=== PATIENT | male | born 1950 | race Two or more races ===

== ENCOUNTER 2024-07-27 11:57 | Inpatient (IN) | payer OTHER ==
[~2024-07-27] VITALS: Ht 182.9 cm; Wt 88.5 kg
[2024-07-27] MEDS ORDERED: REPATHA SY140 MG/1 M SQ (12:29)
[2024-07-27] MEDS ORDERED: GLIMEPIRIDE4 M1 PO (12:29)
[2024-07-27] MEDS ORDERED: TRULICITY1.5 MG/0.5 SQ (12:29)
[2024-07-27] MEDS ORDERED: CATAPRES0.3 MG PO (12:30)
[2024-07-27] MEDS ORDERED: CARDURA8 MG PO (12:30)
[2024-07-27] MEDS ORDERED: LOTREL 10-40 M1 EACH PO (12:30)
[2024-07-27] MEDS ORDERED: XARELTO10 MG PO (12:33)
[2024-07-27] MEDS ORDERED: CARVEDILOL25 MG (12:33)
[2024-07-27] MEDS ORDERED: CIPROFLOXACIN IN 5 % DEXTROSE 400 MG/200 ML PIGGYBAG IV STA (15:13)
[2024-07-27 16:00] LABS: HEMATOCRIT 46.4 % (39.0-48.0); HEMOGLOBIN 15.3 g/dL (13-16.00); MEAN CELL VOLUME 86.1 fL (80.0-100.00); MEAN CORPUSCULAR HEMOGLOBIN 28.4 pg (27.00-32.0); PLATELET COUNT 162 K/uL (150-450); RED BLOOD COUNT 5.38 M/uL (4.00-6.00); RED CELL DISTRIBUTION WIDTH 16.6 % (11.5-14.5)
[2024-07-27 16:18] LABS: CALCIUM 9.5 mg/dL (8.5-10.1); CREATININE SERUM 2.42 mg/dL (0.70-1.30); GFR 26.34; POTASSIUM 4.41 mEq/L (3.5-5.1)
[2024-07-27 17:35] LABS: PH,URINE 5.5 (5.0-8.0); URINE APPEARANCE Clear; URINE BILIRRUBIN Negative (NEGATIVE); URINE BLOOD Small; URINE COLOR Yellow; URINE KETONE Negative (NEGATIVE); URINE LEUKOCYTE Small; URINE NITRATE Negative; URINE PROTEIN 30 (NEGATIVE); URINE UROBILINOGEN 0.2 E.U./dl
[2024-07-27 17:40] LABS: URINE BACTERIA 40.3 uL (0.0-1933); URINE EPITHELIAL CELLS 10.9 uL (0.0-38.8); URINE WBC 240.8 uL (0.0-23.2)
[2024-07-27 17:56] LABS: URINE CAST 0.91 uL (0.0-1.40); URINE GLUCOSE >=1000 MG/DL (NEGATIVE)
[2024-07-27] MEDS ORDERED: hydrALAZINE HCL 25 MG TABLET PO SCH (21:13)
[2024-07-27] MEDS ORDERED: MEROPENEM 500 MG/VIAL VIAL IV SCH (21:13)
[2024-07-27] MEDS ORDERED: 0.9 % SODIUM CHLORIDE 1,000 ML IV SCH (21:15)
[2024-07-27] MEDS ORDERED: ACETAMINOPHEN 500 MG GEL..CAP PO PRN (21:15)
[2024-07-27] MEDS ORDERED: TAMSULOSIN HCL 0.4 MG CAP PO SCH (21:16)
[2024-07-27 21:30] VITALS: BP 157/88
[2024-07-27] MEDS ORDERED: DEXTROSE 50 % IN WATER 0.5 G/ML DISP.SYRIN IV PRN (21:30)
[2024-07-27] MEDS ORDERED: INSULIN LISPRO 1,000 UNIT/10 ML UNITS SUBCUTANEO PRN (21:30)
[2024-07-27 22:24] LABS: INR 1.16; PARTIAL THROMBOPLASTIN TIME 31.9 SECONDS (22.0-34.0); PROTHROMBIN TIME 12.5 SECONDS (9.0-11.5)
[2024-07-27 22:44] LABS: MAGNESIUM 2.1 mg/dL (1.8-2.4)
[2024-07-27 22:48] LABS: C-REACTIVE PROTEIN 20.1 MG/DL (0.00-0.29); PHOSPHOROUS 2.1 mg/dL (2.5-4.9)
[2024-07-27 23:25] VITALS: BP 175/80; O2SAT 98
[2024-07-28 00:53] VITALS: BP 170/70; O2SAT 96
[2024-07-28 08:06] VITALS: BP 154/65; O2SAT 98
[2024-07-28] MEDS ORDERED: FINASTERIDE 5 MG TABLET PO SCH (09:00)
[2024-07-28] MEDS ORDERED: CARVEDILOL 25 MG TABLET PO SCH (09:00)
[2024-07-28] MEDS ORDERED: ENOXAPARIN SODIUM 30 MG/0.3 ML SYRINGE SUBCUTANEO SCH (09:00)
[2024-07-28 16:24] VITALS: BP 198/90
[2024-07-28] MEDS ORDERED: CEFTRIAXONE SODIUM 2,000 MG VIAL IV SCH (17:00)
[2024-07-28] MEDS ORDERED: DOXAZOSIN MESYLATE 4 MG TABLET PO SCH (17:00)
[2024-07-28] MEDS ORDERED: SODIUM CHLORIDE 0.45 % 1,000 ML IV SCH (17:15)
[2024-07-28] MEDS ORDERED: hydrALAZINE HCL 20 MG VIAL IV PRN (17:15)
[2024-07-29 01:07] VITALS: BP 156/75; O2SAT 98
[2024-07-29 08:01] LABS: PH,URINE 5.5 (5.0-8.0); URINE APPEARANCE Clear; URINE BILIRRUBIN Negative (NEGATIVE); URINE BLOOD Negative; URINE COLOR Yellow; URINE KETONE Negative (NEGATIVE); URINE LEUKOCYTE Small; URINE NITRATE Negative; URINE PROTEIN 30 (NEGATIVE); URINE UROBILINOGEN 0.2 E.U./dl
[2024-07-29 08:06] LABS: URINE BACTERIA 22.6 uL (0.0-1933); URINE EPITHELIAL CELLS 9.8 uL (0.0-38.8); URINE WBC 59.9 uL (0.0-23.2)
[2024-07-29 08:10] LABS: HEMATOCRIT 43.5 % (39.0-48.0); HEMOGLOBIN 14.4 g/dL (13-16.00); MEAN CELL VOLUME 84.8 fL (80.0-100.00); MEAN CORPUSCULAR HEMOGLOBIN 28.1 pg (27.00-32.0); MEAN CORPUSCULAR HGB CONC 33.1 g/dl (32.0-36.0); PLATELET COUNT 200 K/uL (150-450); RED BLOOD COUNT 5.12 M/uL (4.00-6.00); RED CELL DISTRIBUTION WIDTH 17.1 % (11.5-14.5)
[2024-07-29 08:54] VITALS: BP 178/69; O2SAT 99
[2024-07-29 09:01] LABS: ALBUMIN 2.9 gm/dL (3.4-5.0); BILIRUBIN TOTAL 0.7 mg/dL (0.3-1.2); CALCIUM 8.9 mg/dL (8.5-10.1); CREATININE SERUM 2.19 mg/dL (0.70-1.30); GFR 29.56; MAGNESIUM 2.2 mg/dL (1.8-2.4); PHOSPHOROUS 3.1 mg/dL (2.5-4.9); POTASSIUM 4.64 mEq/L (3.5-5.1); TOTAL PROTEIN 5.9 gm/dL (6.4-8.2)
[2024-07-29 09:04] LABS: URINE CAST 1.37 uL (0.0-1.40); URINE GLUCOSE 500 MG/DL (NEGATIVE); URINE RBC 1.6 uL (0.0-20.8)
[2024-07-29 09:05] LABS: C-REACTIVE PROTEIN 15.2 MG/DL (0.00-0.29)
[2024-07-29 17:49] VITALS: BP 191/84
[2024-07-29] MEDS ORDERED: PANTOPRAZOLE SODIUM 40 MG TABLET.DR PO NR (18:00)
[2024-07-29] MEDS ORDERED: FAMOtidine 40 MG TABLET PO SCH (21:00)
[2024-07-30] VITALS (7 sets, daily range): BP systolic 173–180; BP diastolic 76–80; O2SAT 92–99
[2024-07-30] MEDS ORDERED: PANTOPRAZOLE SODIUM 40 MG TABLET.DR PO SCH (09:00)
[2024-07-30] MEDS ORDERED: hydrALAZINE HCL 50 MG TABLET PO SCH (09:00)
[2024-07-30] MEDS ORDERED: PATIENTS OWN MEDICATION (MEDICAMENTO EN PISO) PO SCH ×2 (10:15→10:16)
[2024-07-30] MEDS ORDERED: NITROGLYCERIN IN 5 % DEXTROSE 250 ML IV SCH (10:15)
[2024-07-30] MEDS ORDERED: BUMETANIDE 2.5 MG/10 ML VIAL IV SCH ×2 (10:20→21:00)
[2024-07-30 11:00] LABS: ABG PH 7.385 (7.35-7.45); ABG PO2 68.9 mmHg (80-100); BASE EXCESS -3.8 mmol/l; BICARBONATE 20.4 mmol/l (23-25); Tco2 21.5 mmol/l
[2024-07-30] MEDS ORDERED: ASPIRIN 81 MG TABLET.EC PO NR (11:00)
[2024-07-30] MEDS ORDERED: AMLODIPINE BESYLATE 5 MG TABLET PO NR (11:00)
[2024-07-30 11:35] LABS: allen test SATISFACTORY; o2 32 %; puncture site RADIAL LEFT
[2024-07-30] MEDS ORDERED: hydrALAZINE HCL 20 MG VIAL IV SCH (12:00)
[2024-07-30 14:09] LABS: ABG PH 7.386 (7.35-7.45); ABG PO2 91.5 mmHg (80-100); ABG pCO2 34.2 mmHg (35-45); BASE EXCESS -4.1 mmol/l; BICARBONATE 20.1 mmol/l (23-25); SaO2 96.8 %; Tco2 21.1 mmol/l
[2024-07-30 14:14] LABS: allen test SATISFACTORY; o2 50 %; puncture site RADIAL LEFT
[2024-07-30] MEDS ORDERED: AMLODIPINE BESYLATE 5 MG TABLET PO SCH (17:00)
[2024-07-30] MEDS ORDERED: DOXAZOSIN MESYLATE 8 MG TABLET PO SCH (17:00)
[2024-07-30 20:07] LABS: HEMATOCRIT 41.2 % (39.0-48.0); HEMOGLOBIN 13.8 g/dL (13-16.00); MEAN CELL VOLUME 85.9 fL (80.0-100.00); MEAN CORPUSCULAR HEMOGLOBIN 28.7 pg (27.00-32.0); MEAN CORPUSCULAR HGB CONC 33.5 g/dl (32.0-36.0); PLATELET COUNT 202 K/uL (150-450); RED BLOOD COUNT 4.79 M/uL (4.00-6.00); RED CELL DISTRIBUTION WIDTH 16.5 % (11.5-14.5)
[2024-07-30 20:43] LABS: ALBUMIN 2.7 gm/dL (3.4-5.0); BILIRUBIN TOTAL 0.5 mg/dL (0.3-1.2); CALCIUM 8.4 mg/dL (8.5-10.1); CREATININE SERUM 1.99 mg/dL (0.70-1.30); GFR 33.01; GLOBULINA 3.1 G/DL (2.4-3.5); POTASSIUM 4.54 mEq/L (3.5-5.1); TOTAL PROTEIN 5.8 gm/dL (6.4-8.2)
[2024-07-30 20:48] LABS: C-REACTIVE PROTEIN 20.6 MG/DL (0.00-0.29)
[2024-07-31] VITALS (10 sets, daily range): BP systolic 166–177; BP diastolic 67–81; O2SAT 92–97
[2024-07-31 06:12] LABS: HEMATOCRIT 38.8 % (39.0-48.0); MEAN CELL VOLUME 85.2 fL (80.0-100.00); MEAN CORPUSCULAR HEMOGLOBIN 28.5 pg (27.00-32.0); MEAN CORPUSCULAR HGB CONC 33.5 g/dl (32.0-36.0); PLATELET COUNT 194 K/uL (150-450); RED BLOOD COUNT 4.56 M/uL (4.00-6.00); RED CELL DISTRIBUTION WIDTH 16.7 % (11.5-14.5)
[2024-07-31 06:53] LABS: ALBUMIN 2.4 gm/dL (3.4-5.0); CALCIUM 8.1 mg/dL (8.5-10.1); CREATININE SERUM 2.15 mg/dL (0.70-1.30); GFR 30.2; PHOSPHOROUS 3.2 mg/dL (2.5-4.9); POTASSIUM 4.3 mEq/L (3.5-5.1); TSH 0.723 uIU/mL (0.358-3.74)
[2024-07-31] MEDS ORDERED: ASPIRIN 81 MG TABLET.EC PO SCH (09:00)
[2024-07-31] MEDS ORDERED: DOXAZOSIN MESYLATE 8 MG TABLET PO SCH (09:00)
[2024-07-31] MEDS ORDERED: NIFEDIPINE 30 MG TAB.SA.OSM PO SCH (17:00)
[2024-07-31] MEDS ORDERED: BUMETANIDE 2.5 MG/10 ML VIAL IV SCH (21:00)
[2024-08-01] VITALS (8 sets, daily range): BP systolic 140–160; BP diastolic 59–70; O2SAT 93–100
[2024-08-01] MEDS ORDERED: NIFEDIPINE 30 MG TAB.SA.OSM PO SCH (21:00)
[2024-08-02] VITALS (11 sets, daily range): BP systolic 140–207; BP diastolic 69–86; O2SAT 94–99
[2024-08-02 08:12] LABS: CALCIUM 8.8 mg/dL (8.5-10.1); CREATININE SERUM 2.6 mg/dL (0.70-1.30); GFR 24.25; POTASSIUM 4.4 mEq/L (3.5-5.1)
[2024-08-03] VITALS (10 sets, daily range): BP systolic 143–169; BP diastolic 66–80; O2SAT 92–99
[2024-08-03] MEDS ORDERED: NIFEDIPINE 60 MG TAB.SA.OSM PO SCH (09:00)
[2024-08-03] MEDS ORDERED: DOXAZOSIN MESYLATE 8 MG TABLET PO SCH (17:00)
[2024-08-03] MEDS ORDERED: LEVALBUTEROL HCL 0.63 MG/3 ML SOLUTION IH SCH (19:00)
[2024-08-03] MEDS ORDERED: METHYLPREDNISOLONE SOD SUCC 40 MG VIAL IV STA (23:20)
[2024-08-03] MEDS ORDERED: FUROsemide 20 MG/2 ML VIAL IV STA (23:21)
[2024-08-04] VITALS (9 sets, daily range): BP systolic 115–160; BP diastolic 61–67; O2SAT 93–97
[2024-08-04] MEDS ORDERED: METHYLPREDNISOLONE SOD SUCC 40 MG VIAL IV SCH
[2024-08-04 05:20] LABS: HEMATOCRIT 37.9 % (39.0-48.0); HEMOGLOBIN 12.9 g/dL (13-16.00); MEAN CELL VOLUME 84.6 fL (80.0-100.00); MEAN CORPUSCULAR HEMOGLOBIN 28.8 pg (27.00-32.0); MEAN CORPUSCULAR HGB CONC 34.1 g/dl (32.0-36.0); PLATELET COUNT 262 K/uL (150-450); RED BLOOD COUNT 4.48 M/uL (4.00-6.00); RED CELL DISTRIBUTION WIDTH 16.3 % (11.5-14.5)
[2024-08-04 05:51] LABS: ALBUMIN 2.9 gm/dL (3.4-5.0); BILIRUBIN TOTAL 0.34 mg/dL (0.3-1.2); CALCIUM 8.7 mg/dL (8.5-10.1); CREATININE SERUM 2.5 mg/dL (0.70-1.30); GFR 25.37; GLOBULINA 3.1 G/DL (2.4-3.5); MAGNESIUM 2.3 mg/dL (1.8-2.4); POTASSIUM 4.25 mEq/L (3.5-5.1)
[2024-08-05] VITALS (7 sets, daily range): BP systolic 139–165; BP diastolic 60–70; O2SAT 90–97
[2024-08-05] MEDS ORDERED: BUMETANIDE 2.5 MG/10 ML VIAL IV SCH (09:00)
[2024-08-05] MEDS ORDERED: CARVEDILOL25 MG PO (19:07)
[2024-08-05] MEDS ORDERED: DOXAZOSIN MESYLA8 MG PO (19:07)
[2024-08-05] MEDS ORDERED: PANTOPRAZOLE SO40 MG PO (19:08)
[2024-08-05] MEDS ORDERED: NIFEDIPINE ER60 MG PO (19:08)
[2024-08-05] MEDS ORDERED: FINASTERIDE5 MG PO (19:09)
[2024-08-05] MEDS ORDERED: ST. JOSEPH ASPI81 M2 PO (19:10)
[2024-08-05] MEDS ORDERED: TAMS0.4C PO (19:11)
[2024-08-05] MEDS ORDERED: BUMETANIDE1 MG PO (19:12)
[2024-08-05] MEDS ORDERED: XARELTO10 MG PO (19:12)
[2024-08-06] MEDS ORDERED: XARELTO2.5 MG PO (20:21)
== END 2024-08-05 22:24 | disposition home or self-care (01) | DRG 727 ==
LOC: ER 11:58 → SEC-K 22:06 → MEDJ 23:22
PROVIDERS: General Practice; Internal Medicine; Internal Medicine Infectious Disease; Internal Medicine Nephrology; ADMIT Internal Medicine; ATTEND Internal Medicine
PROC: BW21ZZZ Computerized Tomography (CT Scan) of Abdomen and Pelvis (ICD-10-PCS; 2024-07-27)
PROC: B24BZZZ Ultrasonography of Heart with Aorta (ICD-10-PCS; 2024-07-27)
PROC: 4A12X4Z Monitoring of Cardiac Electrical Activity, External Approach (ICD-10-PCS; principal; 2024-07-30)
PROC: BW4GZZZ Ultrasonography of Pelvic Region (ICD-10-PCS; 2024-07-31)
PROC: B54NZZZ Ultrasonography of Left Upper Extremity Veins (ICD-10-PCS; 2024-08-01)
PROC: BW24ZZZ Computerized Tomography (CT Scan) of Chest and Abdomen (ICD-10-PCS; 2024-08-03)
DX: N41.0 Acute prostatitis (principal); A41.9 Sepsis, unspecified organism; I21.A1 Myocardial infarction type 2; N39.0 Urinary tract infection, site not specified; N17.9 Acute kidney failure, unspecified; I13.0 Hypertensive heart and chronic kidney disease with heart failure and stage 1 through stage 4 chronic kidney disease, or unspecified chronic kidney disease; I31.39 Other pericardial effusion (noninflammatory); N20.0 Calculus of kidney; E78.5 Hyperlipidemia, unspecified; N18.9 Chronic kidney disease, unspecified; N40.0 Benign prostatic hyperplasia without lower urinary tract symptoms; E11.65 Type 2 diabetes mellitus with hyperglycemia; Z79.4 Long term (current) use of insulin; I50.9 Heart failure, unspecified; E11.22 Type 2 diabetes mellitus with diabetic chronic kidney disease; I25.10 Atherosclerotic heart disease of native coronary artery without angina pectoris; M79.89 Other specified soft tissue disorders; I35.0 Nonrheumatic aortic (valve) stenosis; J44.9 Chronic obstructive pulmonary disease, unspecified; J45.909 Unspecified asthma, uncomplicated